=== PATIENT | male | born 1990 | race Two or more races ===

== ENCOUNTER 2025-03-06 17:35 | Emergency (ER) | payer OTHER ==
[~2025-03-06] VITALS: Ht 180.3 cm; Wt 92.7 kg
[2025-03-06] MEDS: IBUPROFEN 600 MG TABLET PO ONE (19:41)
[2025-03-06 20:05] VITALS: BP 138/86; PULSE 66; RESP 16; TEMP 98.2; O2SAT 98
== END 2025-03-06 21:21 | disposition home or self-care (01) ==
LOC: EMS 17:41
DX: S01.01XA Laceration without foreign body of scalp, initial encounter (principal); Y04.0XXA Assault by unarmed brawl or fight, initial encounter; Y93.89 Activity, other specified; Y92.89 Other specified places as the place of occurrence of the external cause; Y99.8 Other external cause status
CPT/HCPCS: 12002; 70450; 72125; 99284